=== PATIENT | female | born 1945 | race Asian ===

== ENCOUNTER 2019-03-19 11:41 | Inpatient (IN) | payer OTHER ==
--- NOTE | 2019-03-05 19:40 | NUR ---
RECEIVED PATIENT AAOX4, KYRGYZ IS PRIMARY LANGUAGE. PT ON THE PHONE, CALM AND PLEASANT, SPEAKS YAKUT.IVF INFUSING SITE INTACT. NAD NOTED.
[~2019-03-19] VITALS: Ht 152.4 cm; Wt 73.5 kg
[2019-03-19 11:55] VITALS: BP 114/60
--- NOTE | 2019-03-19 11:56 | NUR ---
PATIENT AMBULATED TO BED 6
[2019-03-19] MEDS ORDERED: METF1TAB5 PO (12:12)
[2019-03-19] MEDS ORDERED: CLOP75TA55 PO (12:12)
[2019-03-19] MEDS ORDERED: SYN.05 PO (12:12)
[2019-03-19] MEDS ORDERED: PREG100C PO (12:12)
[2019-03-19] MEDS ORDERED: EMPA10TA PO (12:12)
[2019-03-19] MEDS ORDERED: MONT10TA35 PO (12:12)
[2019-03-19] MEDS ORDERED: ISOS10TA9 PO (12:12)
[2019-03-19] MEDS ORDERED: NITR0.4T2 SL (12:12)
[2019-03-19] MEDS ORDERED: OLOP2.5S OP (12:12)
[2019-03-19] MEDS ORDERED: INSU100S22 SUBQ (12:12)
[2019-03-19] MEDS ORDERED: NIAC500T30 PO (12:12)
[2019-03-19] MEDS ORDERED: RALO60TA PO (12:12)
[2019-03-19] MEDS ORDERED: FLUT1DSK2 IH (12:12)
[2019-03-19] MEDS ORDERED: FURO-572 PO (12:12)
[2019-03-19] MEDS ORDERED: ASPI-1718 PO (12:12)
[2019-03-19] MEDS ORDERED: TELM80TA1 PO (12:12)
[2019-03-19] MEDS ORDERED: LEVO5TAB12 PO (12:12)
[2019-03-19] MEDS ORDERED: METO50TE2 PO (12:12)
--- NOTE | 2019-03-19 12:13 | NUR ---
C/O RIGHT 3RD TOE WOUND, PT WAS SEEN AT PMD OFFICE AND REFERRED TO ER TO R/O OSTEOMYELITIS WITH ABSCESS. PT STATES STILL ABLE TO AMBULATE/BEAR WEIGHT ON RT FOOT. STATES NUMBNESS D/T DIABETIC NEUROPATHY. DENIES FEVER, PAIN. TOE IS SWOLLEN, WITH OPEN ABSCESS ON DORSAL SURFACE ON RIGHT SIDE OF TOENAIL. NO BLACKENED AREAS. NO ACTIVE DRAINAGE FROM ABSCESS. HX HTN, DM, HYPOTHYOID
[2019-03-19] MEDS ORDERED: NACL 0.9% 1,000 ML IV ONE (13:05)
[2019-03-19] MEDS ORDERED: PIPERACILLIN/TAZOBACTAM 4.5 GM in DEXTROSE 5% 100 ML IV ONE (13:05)
[2019-03-19] MEDS ORDERED: VANCOMYCIN 1,000 MG in DEXTROSE 5% 250 ML IV ONE (13:05)
--- NOTE | 2019-03-19 13:16 | NUR ---
X-Ray at bedside.
[2019-03-19] MEDS ORDERED: VANCOMYCIN 1,000 MG VIAL ONE (13:29)
[2019-03-19] MEDS ORDERED: PIPERACILLIN/TAZOBACTAM 2.25 GM VIAL IV ONE (13:29)
[2019-03-19 13:50] LABS: BASOPHILS % (AUTO) 0.6 % (0.0-2.0); EOSINOPHILS # (AUTO) 0.1 K/uL (0-0.4); EOSINOPHILS % (AUTO) 1.6 % (0.0-4.0); HEMATOCRIT 35.3 % (36-48); HEMOGLOBIN 11.4 g/dL (12.0-16.0); LYMPHOCYTES # (AUTO) 1.7 K/uL (2.5-16.5); LYMPHOCYTES % (AUTO) 22.8 % (20.5-51.1); MEAN CORPUSCULAR HEMOGLOBIN 32 pg (27-31); MEAN CORPUSCULAR HGB CONC 32 g/dL (33-37); MEAN CORPUSCULAR VOLUME 98.6 fL (80-94); MONOCYTES # (AUTO) 0.5 K/uL (0.8-1.0); MONOCYTES % (AUTO) 6.3 % (1.7-9.3); NEUTROPHILS % (AUTO) 68.7 % (42.2-75.2); PLATELET COUNT (AUTO) 213 K/uL (140-450); RED BLOOD CELL COUNT(AUTO) 3.58 MIL/uL (4.20-5.40); RED CELL DISTRIBUTION WIDTH 13.6 % (11.6-13.7); WHITE BLOOD COUNT (AUTO) 7.3 K/uL (4.8-10.8)
[2019-03-19 14:05] LABS: ANION GAP 13.4 (8-16); CARBON DIOXIDE 26.6 mmol/L (21-32); CHLORIDE 104 mmol/L (98-107); CREATININE 1.1 mg/dL (0.6-1.3); GLUCOSE 161 mg/dL (74-106); SODIUM SERUM 139 mmol/L (136-145); UREA NITROGEN, BLOOD 22 mg/dL (7-18)
--- NOTE | 2019-03-19 16:08 | NUR ---
PHOTO OF RIGHT FOOT 3RD DIGIT TAKEN AND PRINTED.
[2019-03-19] MEDS ORDERED: ONDANSETRON 4 MG/2 ML VIAL IM/IVP PRN (16:25)
[2019-03-19] MEDS ORDERED: ACETAMINOPHEN 325 MG TAB PO PRN (16:25)
[2019-03-19] MEDS ORDERED: MORPHINE SULFATE 2 MG/ML SYR IVP PRN (16:25)
[2019-03-19] MEDS ORDERED: DEXTROSE 50% 50 ML SYR IVP PRN (16:25)
[2019-03-19] MEDS ORDERED: DOCUSATE SODIUM 100 MG GELCAP PO PRN (16:25)
[2019-03-19] MEDS ORDERED: LORazepam 2 MG/ML VIAL IM/IVP PRN (16:25)
[2019-03-19] MEDS ORDERED: HYDROcodone/APAP 5/325 MG 1 TAB TAB PO PRN (16:25)
[2019-03-19] MEDS: BLOOD GLUCOSE MONITORING 1 DEV DEV FS SCH ×2 (16:30→20:07)
[2019-03-19] MEDS ORDERED: VANCOMYCIN PER PHARMACY MC PRN (16:30)
--- NOTE | 2019-03-19 16:55 | NUR ---
Ultrasound in progress. Will take patient to Med surg when US complete.
--- NOTE | 2019-03-19 17:40 | NUR ---
PATIENT ARRIVED UNIT ACCOMPANIED BY ER NURSE IN WHEELCHAIR. TRANSFERRED PATIENT ON BED AND VITAL SIGNS TAKEN; TEMP 97.1, BP 155/64, PULSE 55, SPO2 98% ON RA, DENIED PAIN. MRSA COLLECTED. PATIENT IS RESTING ON BED AT THIS TIME. NO SIGNS OF DISTRESS NOTED.
--- NOTE | 2019-03-19 17:40 | NUR ---
Patient will be admitted to care of DR. MARTINEZ. Admited to TELE. Will go to room 110B. Belongings list completed. Report to LONNIE ROOT.
--- NOTE | 2019-03-19 18:25 | NUR ---
DR DENISE IS BY BEDSIDE AND ASSESSING PATIENT. DR DENISE DID WOUND DEBRIDEMENT AND COLLECTED WOUND SPECIMEN.
[2019-03-19 18:32] LABS: ALBUMIN 2.9 g/dL (3.4-5.0); ANION GAP 11.6 (8-16); ASPARTATE AMINOTRANSFERASE 35 U/L (15-37); CARBON DIOXIDE 26.5 mmol/L (21-32); CHLORIDE 105 mmol/L (98-107); CREATININE 1.2 mg/dL (0.6-1.3); GLUCOSE 151 mg/dL (74-106); POTASSIUM 5.1 mmol/L (3.5-5.1); SODIUM SERUM 138 mmol/L (136-145); TOTAL BILIRUBIN 0.3 mg/dL (0.0-1.0); UREA NITROGEN, BLOOD 22 mg/dL (7-18)
--- NOTE | 2019-03-19 18:40 | NUR ---
ASSISTED PATIENT TO USE THE BATHROOM. PATIENT'S GAIT IS UNSTEADY DUE TO HER FOOT
[2019-03-19] MEDS: NACL 0.9% 1,000 ML IV SCH (18:56)
[2019-03-19 19:20] LABS: MAGNESIUM 1.6 mg/dL (1.8-2.4); PHOSPHORUS 3.9 mg/dL (2.5-4.9); THYROID STIMULATING HORMONE 0.82 uIU/mL (0.34-3.74)
--- NOTE | 2019-03-19 19:30 | NUR ---
ENDORSED PATIENT AT BEDSIDE TO MEDICAL CLAIMS EXAMINER NURSE FOR CONTINUITY OF CARE. PATIENT IS IN STABLE CONDITION. SAFETY MEASURES IN PLACE.
--- NOTE | 2019-03-19 19:31 | NUR ---
RECEIVED PTSYDNEY FLEMING RN PT AAOX4 S/P DEBRIDEMENT ON RT FOOT THIRD TOE IV ON LEFT WRIST GAUGE # 22 INFUSING WELL DENIES ANY PAIN CALL LIGHT WITHIN REACH INITIAL ASSESSMENT DONE.
[2019-03-19 20:00] VITALS: BP 178/62
[2019-03-19] MEDS ORDERED: METOPROLOL SUCCINATE 50 MG TABER PO SCH (20:00)
[2019-03-19] MEDS: PIPERACILLIN/TAZOBACTAM 3.375 GM in DEXTROSE 5% 50 ML IV SCH (20:09)
[2019-03-19] MEDS: MONTELUKAST SODIUM 10 MG TAB PO SCH (20:13)
[2019-03-19 20:53] LABS: PROTHROMBIN TIME 8.8 secs (10.8-13.4)
--- NOTE | 2019-03-19 21:00 | NUR ---
BLOOD SUGAR TEST 112 NOT COVERAGE, PT IS TRANSFER TO ROOM 120B
[2019-03-19] MEDS ORDERED: hePARIN / DEXT 5% PREMIX 250 ML IV SCH (21:55)
[2019-03-19] MEDS ORDERED: HEPARIN PER PHARMACY MC PRN (21:55)
[2019-03-19] MEDS: hePARIN / DEXT 5% PREMIX 250 ML IV SCH (23:04)
--- NOTE | 2019-03-19 23:04 | NUR ---
HEPARIN DRIP STARTED AT 850 UNITS/H OR 8.5 ML/H AND PHARMACY CALL PLEASE DO NOT GIVE BOLUS AND REPORT PHARMACY RESULT OF PTT IN 6 HOURS NEXT PTT WILL BE AT 0504 AM
[2019-03-19] MEDS ORDERED: MELATONIN 3 MG TAB PO PRN (23:35)
[2019-03-20] VITALS: BP 124/45
--- NOTE | 2019-03-20 01:00 | NUR ---
PT REMAIN STBLE SLEEPING WELL NOT DISTRESS NOTED NOT SIGNS OF LBEEDING NOTED
[2019-03-20] MEDS: NACL 0.9% 1,000 ML IV SCH ×2 (01:45→16:46)
[2019-03-20 04:00] VITALS: BP 131/48
--- NOTE | 2019-03-20 04:00 | NUR ---
SPONGE BATH GIVEN LINEN CHANGED PT ON HEPARIN DRIP 8.5 ML/H , NOT SIGNS OF BLEEDING NOTED , PT DENIES ANY PAIN, RT FOOT DRESSING DRY AND INTACT ON PILLOW ELEVATION
[2019-03-20] MEDS: PIPERACILLIN/TAZOBACTAM 3.375 GM in DEXTROSE 5% 50 ML IV SCH ×3 (05:04→21:26)
[2019-03-20] MEDS: LEVOTHYROXINE 0.05 MG TAB PO SCH (05:18)
[2019-03-20] MEDS: BLOOD GLUCOSE MONITORING 1 DEV DEV FS SCH ×4 (05:44→21:04)
[2019-03-20 06:08] LABS: BASOPHILS % (AUTO) 0.8 % (0.0-2.0); EOSINOPHILS # (AUTO) 0.2 K/uL (0-0.4); HEMATOCRIT 31.9 % (36-48); HEMOGLOBIN 10.4 g/dL (12.0-16.0); LYMPHOCYTES # (AUTO) 1.8 K/uL (2.5-16.5); MEAN CORPUSCULAR HEMOGLOBIN 32 pg (27-31); MEAN CORPUSCULAR HGB CONC 33 g/dL (33-37); MEAN CORPUSCULAR VOLUME 97.8 fL (80-94); MONOCYTES # (AUTO) 0.6 K/uL (0.8-1.0); MONOCYTES % (AUTO) 11.1 % (1.7-9.3); NEUTROPHILS # (AUTO) 3.1 K/uL (1.8-7.7); NEUTROPHILS % (AUTO) 53.1 % (42.2-75.2); PLATELET COUNT (AUTO) 202 K/uL (140-450); RED BLOOD CELL COUNT(AUTO) 3.26 MIL/uL (4.20-5.40); RED CELL DISTRIBUTION WIDTH 13.2 % (11.6-13.7); WHITE BLOOD COUNT (AUTO) 5.8 K/uL (4.8-10.8)
[2019-03-20 06:14] LABS: ANION GAP 9.8 (8-16); CARBON DIOXIDE 28.5 mmol/L (21-32); CHLORIDE 108 mmol/L (98-107); CREATININE 1.1 mg/dL (0.6-1.3); GLUCOSE 111 mg/dL (74-106); POTASSIUM 5.3 mmol/L (3.5-5.1); SODIUM SERUM 141 mmol/L (136-145); UREA NITROGEN, BLOOD 21 mg/dL (7-18)
[2019-03-20 06:18] LABS: CHOL/HDL RATIO 2.8 (1-4.5); MAGNESIUM 1.7 mg/dL (1.8-2.4); PHOSPHORUS 4.8 mg/dL (2.5-4.9)
--- NOTE | 2019-03-20 06:51 | NUR ---
CALLED LAB AND ASKED OF RESULT OF PTT ON 454 THAT STILL WAS PENDING SO JJM=[id number].STOPPED HEPARIN DRIP AT 0650 HAS TO STOP X1 HR THEN START AGAIN PER PROTOCOL.INFORMED KATHARINA ROOT PT'S NURSE.
--- NOTE | 2019-03-20 07:01 | NUR ---
;PT WILL BE ENDORSED TO DAY SHIFT NURSE TO CONTINUE HEPARIN PROTOCOL HEPARIN IS HOLDING FOR ONE HOUR AND END AT 0750AM AND WILL BE REDUCE 200 UNITS/H THE HEPARIN DRIP WILL BE 650 UNITS/H AND CONTINUE HEPARIN PROTOCOL
--- NOTE | 2019-03-20 07:20 | NUR ---
RECEIVED REPORT FROM FERRYBOAT OPERATOR HELPER RN. PATIENT IS FULL CODE, NKA, ON ROOM AIR. PT IS AAOX4, BERMUDIAN SPEAKING WITH MINIMAL PERUVIAN. PT HAS A LEFT WRIST 22G. TROPONIN LEVELS ARE HIGH, HEPARIN DRIP IS INFUSING. RN STOPPED HEP DRIP AT 0700 FOR HIGH PTT OF 111. DRIP TO BE RESUMED AT 0800 WITH 200 LESS UNITS. WILL FOLLOW UP AND CONTINUE [facility] PLAN OF CARE.
[2019-03-20 08:00] VITALS: BP 128/38
[2019-03-20] MEDS: hePARIN / DEXT 5% PREMIX 250 ML IV SCH ×3 (08:00→21:46)
--- NOTE | 2019-03-20 08:00 | NUR ---
HEPARIN DRIP RESUMED AT 650U. PTT ORDERED FOR 1400. PT WAS CONSULTED BY DR CRABTREE MEAT SEAFOOD ASSOCIATE. Addendum: 03/20/19 at 0931 by Yary Frank RN DR GUALLPA
--- NOTE | 2019-03-20 08:10 | NUR ---
PATIENT HAS BEEN SCREENED AND CATEGORIZED HIGH NUTRITION RISK. PATIENT WILL BE SEEN WITHIN 1-2 DAYS OF ADMISSION. 03/20/19-03/21/[address]
[2019-03-20 08:21] LABS: FOLIC ACID 19.3 ng/mL (>3.0)
[2019-03-20] MEDS: LACTOBACILLUS RHAMNOSUS GG 1 EACH CAP PO SCH (08:26)
[2019-03-20] MEDS: NIACIN 500 MG TAB PO SCH (08:27)
--- NOTE | 2019-03-20 08:30 | NUR ---
ADMINISTERED MORNING MEDICATION TO PATIENT. PATIENT TOLERATED WELL. DID NOT ADMINISTER COZAAR D/T PROTOCOL OF DBP <60. GAVE 10U LANTUS, BLOOD SUGAR PRIOR WAS 147. PATIENT IS SITTING UP IN BED. NO COMPLAINTS AT THIS TIME.
[2019-03-20] MEDS: INSULIN LANTUS 100 UNITS/ML 10 ML VIAL SUBQ SCH (08:31)
[2019-03-20] MEDS: ASPIRIN 81 MG TAB.CHEW PO SCH (08:32)
[2019-03-20] MEDS: FUROSEMIDE 20 MG TAB PO SCH (08:33)
[2019-03-20] MEDS: ISOSORBIDE DINITRATE 10 MG TAB PO SCH (08:34)
[2019-03-20] MEDS: LOSARTAN 50 MG TAB PO SCH (08:34)
[2019-03-20] MEDS ORDERED: NON-FORMULARY ITEM (Clopidogrel Bisulfate (Clopidogrel) 75 MG) PO SCH (09:00)
[2019-03-20] MEDS ORDERED: CLOPIDOGREL 75 MG TAB PO SCH (09:00)
[2019-03-20] MEDS ORDERED: METOPROLOL SUCCINATE 50 MG TABER PO SCH (09:00)
[2019-03-20] MEDS: RALOXIFENE 60 MG TAB PO SCH (09:00)
[2019-03-20] MEDS ORDERED: INSULIN GLARGINE HUM REC ANLOG U SUBQ SCH (09:00)
--- NOTE | 2019-03-20 11:30 | NUR ---
ADMINISTERED INSULIN 2U FOR BLOOD SUGAR OF 177
[2019-03-20] MEDS: INSULIN LISPRO SLIDING SCALE 100 UNITS/ML VIAL SUBQ PRN ×3 (11:44→21:08)
[2019-03-20] MEDS: VANCOMYCIN HCL 750 MG in DEXTROSE 5% 250 ML IV SCH (12:00)
--- NOTE | 2019-03-20 12:26 | NUR ---
ADMINISTERED MAG OX PO PER DR ORDER FOR LOW MAGNESIUM. PATIENTS SON IS AT BEDSIDE. NO COMPLAINTS AT THIS TIME.
[2019-03-20] MEDS ORDERED: FUROSEMIDE 20 MG/2 ML VIAL IVP SCH (12:30)
[2019-03-20] MEDS ORDERED: MAGNESIUM OXIDE 400 MG TAB PO SCH (12:30)
--- NOTE | 2019-03-20 12:45 | NUR ---
03/20/19 RD INITIAL ASSESSMENT COMPLETED PLEASE REFER TO NUTRITION ASSESSMENT UNDER CARE ACTIVITY FOR ESTIMATED NUTRITIONAL NEEDS. 1. CONTINUE CCHO 60GM DIET TOLERATED 2. RECOMMEND DARIEL BID FOR WOUND HEALING 3. RD TO FOLLOW-UP 3-5 DAYS, MODERATE RISK PATITO BUSH, RD
[2019-03-20] MEDS: DRY DRESSING TP SCH (13:00)
[2019-03-20] MEDS: GAUZE TP SCH (13:00)
--- NOTE | 2019-03-20 13:00 | NUR ---
DID NOT ADMIN GAUZE AND DRESSING CHANGE D/T DR DENISE WAS HERE AND HAD CHANGED IT AND THEN PUT IN THOSE ORDERS FOR DAILY DRESSING CHANGE. WILL ENDORSE TO IN STORE MARKETING ASSOCIATE
[2019-03-20 14:20] LABS: ANION GAP 13.1 (8-16); ASPARTATE AMINOTRANSFERASE 27 U/L (15-37); CARBON DIOXIDE 27.1 mmol/L (21-32); CHLORIDE 105 mmol/L (98-107); CREATININE 1.2 mg/dL (0.6-1.3); GLUCOSE 208 mg/dL (74-106); POTASSIUM 4.2 mmol/L (3.5-5.1); SODIUM SERUM 141 mmol/L (136-145); TOTAL BILIRUBIN 0.4 mg/dL (0.0-1.0); UREA NITROGEN, BLOOD 19 mg/dL (7-18)
--- NOTE | 2019-03-20 14:20 | NUR ---
Telecommunications Sales Representative Note: Assessment/Discharge Planning: Per patient, she lives at home with her son Nakita Rojas . She ambulates with a walker sometimes. She has a wheelchair at home. Patient's son assist her with ADLs at home and takes her to pcp's office. She use to have home health services a long time ago. Patient's Lao is limited. I told patient I was going to speak with her son Nakita. She verbalized understanding. She requested I meet with him tomorrow (03/21/19) around 9am.
--- NOTE | 2019-03-20 14:30 | NUR ---
RECEIVED CRITICAL TROPONIN OF 0.101. DID NOT NOTIFY D/T TRENDING DOWN.
--- NOTE | 2019-03-20 15:15 | NUR ---
PATIENT IS OFF UNIT FOR NUCLEAR MED SCAN TO R/O OSTEOMYELITIS. WAS INFORMED NUCLEAR MED WILL RETURN AT EITHER 1800 OR 1900 TO CONTINUE THE SCAN
[2019-03-20 16:00] VITALS: BP 130/48
--- NOTE | 2019-03-20 16:39 | NUR ---
APTT VALUE RECEIVED OF 61.9. PER PROTOCOL, NO CHANGE IN HEPARIN DRIP.
--- NOTE | 2019-03-20 16:46 | NUR ---
ADMINISTERED 6U INSULIN FOR BLOOD SUGAR OF 256
--- NOTE | 2019-03-20 19:00 | NUR ---
RECIEVED PT FROM JACKIE ROOT. PT AWAKE AAOX4. IV LEFT WRIST INFUSING WELL HEPARIN 650 UNIT PER HR.
[2019-03-20 20:00] VITALS: BP 135/45
--- NOTE | 2019-03-20 20:45 | NUR ---
PT. BACK FROM NUCLEAR MEDICINE AND LAB DRAWING BLOOD FOR PTT. NO DISTRESS NOTED.
[2019-03-20] MEDS: MONTELUKAST SODIUM 10 MG TAB PO SCH (21:26)
--- NOTE | 2019-03-20 21:46 | NUR ---
PTT 54.4 AND WILL CONT HEPARIN DRIP AT 650 UNITS PER HOUR NO CHANGES.
[2019-03-21] VITALS: BP 136/48
--- NOTE | 2019-03-21 | NUR ---
PT SLEEPING WELL NOT DISTRESS NOTED NOT SIGN OF BLEEDING NOTED ON HEPARIN DRIP REMAIN 650 UNITS /H PT ON CLOSE MONITORING
--- NOTE | 2019-03-21 03:00 | NUR ---
PT REMAIN STABLE ON HEPARIN DRIP 650 UNITS/H;, VOIDING WELL
[2019-03-21 04:00] VITALS: BP_SYST 133; BP_SYST 136; BP_DIAS 48; BP_DIAS 58
[2019-03-21] MEDS: PIPERACILLIN/TAZOBACTAM 3.375 GM in DEXTROSE 5% 50 ML IV SCH ×3 (05:19→20:40)
[2019-03-21] MEDS: NACL 0.9% 1,000 ML IV SCH ×2 (05:20→18:16)
[2019-03-21] MEDS: BLOOD GLUCOSE MONITORING 1 DEV DEV FS SCH ×4 (05:27→20:47)
--- NOTE | 2019-03-21 05:30 | NUR ---
SPONGE BATH GIVEN LINEN CHANGED NOT DISTRESS NOTED PT USING BSC ON HEPARIN DRIP ON LEFT WRIST
[2019-03-21] MEDS: LEVOTHYROXINE 0.05 MG TAB PO SCH (05:35)
--- NOTE | 2019-03-21 06:25 | NUR ---
BLOOD SUGAR TEST 107 NOT COVERAGE
--- NOTE | 2019-03-21 06:26 | NUR ---
PT WILL BE ENDORSED TO DAY SHIFT NURSE FOR CONTINUE OF CARE
[2019-03-21 06:44] LABS: ANION GAP 13.9 (8-16); CARBON DIOXIDE 27.3 mmol/L (21-32); CHLORIDE 107 mmol/L (98-107); CREATININE 1.1 mg/dL (0.6-1.3); GLUCOSE 117 mg/dL (74-106); POTASSIUM 4.2 mmol/L (3.5-5.1); SODIUM SERUM 144 mmol/L (136-145); UREA NITROGEN, BLOOD 18 mg/dL (7-18)
[2019-03-21 06:47] LABS: MAGNESIUM 1.7 mg/dL (1.8-2.4); PHOSPHORUS 4.2 mg/dL (2.5-4.9)
[2019-03-21 07:26] LABS: BASOPHILS % (AUTO) 0.7 % (0.0-2.0); EOSINOPHILS # (AUTO) 0.1 K/uL (0-0.4); EOSINOPHILS % (AUTO) 2.5 % (0.0-4.0); HEMATOCRIT 32.8 % (36-48); HEMOGLOBIN 10.8 g/dL (12.0-16.0); LYMPHOCYTES # (AUTO) 1.7 K/uL (2.5-16.5); LYMPHOCYTES % (AUTO) 29.8 % (20.5-51.1); MEAN CORPUSCULAR HEMOGLOBIN 32 pg (27-31); MEAN CORPUSCULAR HGB CONC 33 g/dL (33-37); MEAN CORPUSCULAR VOLUME 97.4 fL (80-94); MONOCYTES # (AUTO) 0.7 K/uL (0.8-1.0); MONOCYTES % (AUTO) 12.3 % (1.7-9.3); NEUTROPHILS # (AUTO) 3.1 K/uL (1.8-7.7); NEUTROPHILS % (AUTO) 54.7 % (42.2-75.2); PLATELET COUNT (AUTO) 221 K/uL (140-450); RED BLOOD CELL COUNT(AUTO) 3.37 MIL/uL (4.20-5.40); RED CELL DISTRIBUTION WIDTH 13.8 % (11.6-13.7); WHITE BLOOD COUNT (AUTO) 5.6 K/uL (4.8-10.8)
--- NOTE | 2019-03-21 07:30 | NUR ---
RECEIVED REPORT FROM RUBBER COVERING MACHINE OPERATOR RN. PATIENT IS RESTING IN BED, ON HEPARIN DRIP. PATIENT IS AAOX4, ON ROOM AIR. FULL CODE, NKA. WILL REVIEW AND CONTINUE WITH PLAN OF CARE.
[2019-03-21 08:00] VITALS: BP 141/50
[2019-03-21] MEDS ORDERED: MAGNESIUM OXIDE 400 MG TAB PO SCH ×2 (09:00)
--- NOTE | 2019-03-21 09:10 | NUR ---
Ferryboat Helper Note: I met with patient's son Nakita Rojas . I was able to confirmed with Nakita the following information patient had previously provided me with. Patient lives at home with her son Nakita. She ambulates with a walker sometimes. She has a wheelchair at home. Patient's son assist her with ADLs at home and takes her to pcp's office. She use to have home health services a long time ago. He told me patient has never been at a snf before. Patient and Nakita prefer patient to return home upon discharge. However, they are both in agreement with snf placement. I provided Nakita with education/information about snfs, including difference between halfway placement and short term placement. I explained to him that the health insurance plan will be notified of MD's order for snf. He told me patient might get anxious at snf since she has never been at one before. I asked him if he would like for Ferryboat Helper or Emergency Medical Technician/Driver to speak with national account representative from accepting snf and inquired if he/she can meet with patient and Nakita to provide information about their facility and address questions and/or concerns. He told me he thinks this would help minimize patient's anxiety, Emergency Medical Technician/Driver Sammi made aware.
--- NOTE | 2019-03-21 09:30 | NUR ---
SENT OVER URINE SPECIMEN TO LAB FOR UA PER DR GERBER
[2019-03-21] MEDS: ATORVASTATIN 80 MG TAB PO SCH (09:31)
[2019-03-21] MEDS: LACTOBACILLUS RHAMNOSUS GG 1 EACH CAP PO SCH (09:32)
[2019-03-21] MEDS: FUROSEMIDE 20 MG TAB PO SCH (09:32)
[2019-03-21] MEDS: LOSARTAN 50 MG TAB PO SCH (09:33)
[2019-03-21] MEDS: ISOSORBIDE DINITRATE 10 MG TAB PO SCH (09:33)
[2019-03-21] MEDS: NIACIN 500 MG TAB PO SCH (09:34)
[2019-03-21] MEDS: ASPIRIN 81 MG TAB.CHEW PO SCH (09:34)
[2019-03-21] MEDS: RALOXIFENE 60 MG TAB PO SCH (09:34)
[2019-03-21] MEDS: CLOPIDOGREL 75 MG TAB PO SCH (09:35)
[2019-03-21] MEDS: INSULIN LANTUS 100 UNITS/ML 10 ML VIAL SUBQ SCH (09:38)
--- NOTE | 2019-03-21 10:00 | NUR ---
DISCONTINUED HEPARIN DRIP PER APTT OF [address] GERBER'S ORDERS
--- NOTE | 2019-03-21 10:13 | NUR ---
WOUND CARE CONSULT NOT DONE, PT. SEEN AND DEBRIDEMENT DONE TO RIGHT 3RD TOE BY DR. OQUENDO ON 03/20/19, WILL CONTINUE TO FOLLOW THE ORDER. PT. AND SON VERBALIZES UNDERSTANDING. PRIMARY RN NOTIFIED.
[2019-03-21 10:17] LABS: APPEARANCE,URINE CLEAR (CLEAR); BILIRUBIN,URINE NEGATIVE (NEGATIVE); BLOOD, URINE NEGATIVE (NEGATIVE); COLOR,URINE YELLOW (YELLOW); LEUKOCYTE ESTERASE ,URINE NEGATIVE (NEGATIVE); NITRITE, URINE NEGATIVE (NEGATIVE); UGLUCOSE 3+ (NEGATIVE)
[2019-03-21 10:22] LABS: BARBITURATE, URINE NEG. ng/ml (NEG <=200); BENZODIAZEPINE, URINE NEG. ng/mL (NEG <=200); CANNABINOID, URINE NEG. ng/mL (NEG <=50); COCAINE, URINE NEG. ng/mL (NEG <=300); OPIATE, URINE NEG. ng/mL (NEG <=2000); PHENCYCLIDINE SCREEN,URINE NEG. ng/mL (NEG <=25)
[2019-03-21 10:27] LABS: RBC,URINE 0 /HPF (0-5); WBC,URINE 0 /HPF (0-5)
--- NOTE | 2019-03-21 10:47 | NUR ---
DC PLANNING: CM CONTACTED [facility] [employer] @ [employer]T. [facility]. SPOKE WITH JORGE REGARDING DC PLANNING TO SNF FOR IV ABX FOR OSTEOMYLITIS. JORGE ASKED CM TO FAX ORDER AND CLINICAL PACKET. THEY ARE THE ONE WHO WILL BE ARRANGING SNF FOR THE PATIENT. CM FAXED CLINICAL PACKET AND ORDER TO F . CM TO FOLLOW UP NEEDED. Addendum: 03/21/19 at 1426 by Sammi Dickson CM CM ATTEMPTED TO FOLLOW UP WITH [employer] [facility] CM (EKATERINA HARRINGTON) @ REGARDING SNF PLACEMENT. HOWEVER, WAS NOT AVAILABLE. CM LEFT VOICE MESSAGE AND CALL BACK NUMBER. CM TO FOLLOW UP.
--- NOTE | 2019-03-21 11:35 | NUR ---
ADMINISTERED 4U INSULIN FOR BLOOD SUGAR OF 227
[2019-03-21] MEDS: INSULIN LISPRO SLIDING SCALE 100 UNITS/ML VIAL SUBQ PRN ×3 (11:37→20:49)
[2019-03-21 12:00] VITALS: BP 105/58
--- NOTE | 2019-03-21 12:41 | NUR ---
PATIENT USED BEDSIDE COMMODE FOR BM X1. SON IS AT BEDSIDE. SON DISCUSSED DISCHARGE PLANNING WITH BENEFIT DIRECTOR. NO FURTHER QUESTIONS FROM SON OR PATIENT.
[2019-03-21] MEDS: VANCOMYCIN HCL 750 MG in DEXTROSE 5% 250 ML IV SCH (13:00)
--- NOTE | 2019-03-21 13:30 | NUR ---
CHANGED PATIENTS DRESSING TO RIGHT FOOT TO 3RD DIGIT. PATIENT TOLERATED WELL, NO C/O OF PAIN DURING.
[2019-03-21] MEDS: GAUZE TP SCH (13:54)
[2019-03-21] MEDS: DRY DRESSING TP SCH (13:55)
[2019-03-21 16:00] VITALS: BP 109/40
--- NOTE | 2019-03-21 19:30 | NUR ---
RECEIVED PT IN STABLE CONDITION FROM AN NURSE. AWAKE,ALERT AND ORIENTEDX4. MED SURG PT. WITH NO C/O ANY DISCOMFORT NOR PAIN NOTED. RIGHT FOOT WITH DRESSING .DRY AND INTACT. NO BLEEDING NOTED. HAS IVF INFUSING WELL ON ELLLT WRIST G #22. CLEAR AND PATENT. FREQ ROUNDS NEEDED. BSC WITHIN REACH BUT CALL LIGHT ALSO PLACED WITHIN EASY REACH FOR HER TO CALL FIRST FOR ASSISTANCE. BED ON LOW POSITION. WILL CONTINUE TO MONITOR.
[2019-03-21] MEDS: MONTELUKAST SODIUM 10 MG TAB PO SCH (20:40)
--- NOTE | 2019-03-21 20:50 | NUR ---
BLOOD SUGAR WAS CHECKED RESULT 334. INSULIN COVERAGE HUMALOG 8 UNITS SUBQ GIVEN. PROVIDED WITH SNACK. WILL CONTINUE TO MONITOR.
--- NOTE | 2019-03-21 22:00 | NUR ---
MADE ROUNDS. PT IS ASLEEP. NO S/S OF ANY DISCOMFORT NOTED.
--- NOTE | 2019-03-22 00:20 | NUR ---
MADE ROUNDS. PT SLEEPING WELL. .NO S/S OF ANY PAIN NOTED. WILL CONTINUE TO MONITOR.
--- NOTE | 2019-03-22 00:30 | NUR ---
PT VITAL SIGNS TAKEN. STABLE. WILL CONTINUE TO MONITOR.
[2019-03-22 00:43] VITALS: BP_SYST 127; BP_SYST 133; BP_DIAS 61; BP_DIAS 65
--- NOTE | 2019-03-22 02:00 | NUR ---
MADE ROUNDS. PT ASLEEP. NO S/S OF ANY PAIN NOTED. WILL CONTINUE TO MONITOR.
--- NOTE | 2019-03-22 04:00 | NUR ---
MADE ROUNDS. PT ASLEEP. NO S/S OF ANY DISCOMFORT NOTED.
[2019-03-22] MEDS: PIPERACILLIN/TAZOBACTAM 3.375 GM in DEXTROSE 5% 50 ML IV SCH ×3 (04:56→21:40)
[2019-03-22] MEDS: BLOOD GLUCOSE MONITORING 1 DEV DEV FS SCH ×4 (06:06→21:38)
--- NOTE | 2019-03-22 06:10 | NUR ---
BLOOD SUGAR WAS CHECKED THIS A, RESULT 140.
[2019-03-22] MEDS: LEVOTHYROXINE 0.05 MG TAB PO SCH (06:16)
--- NOTE | 2019-03-22 07:15 | NUR ---
ENDORSED PT IN STABLE CONDITION TO AM NURSE FOR CONTINUITY OF CARE.
--- NOTE | 2019-03-22 07:16 | NUR ---
RECEIVED REPORT FROM PROFESSOR OF PRACTICE NURSE JANINE. PT IN STABLE CONDITION. RESPIRATIONS EVEN AND UNLABORED, ROOM AIR. IV INTACT AND PATENT. SAFETY MEASURES IN PLACE. BED IN LOW POSITION. BED ALARM ON. CALL LIGHT AT BEDSIDE. WILL CONTINUE TO MONITOR.
[2019-03-22 07:38] LABS: BASOPHILS % (AUTO) 0.6 % (0.0-2.0); EOSINOPHILS # (AUTO) 0.1 K/uL (0-0.4); EOSINOPHILS % (AUTO) 2.5 % (0.0-4.0); HEMATOCRIT 35.2 % (36-48); HEMOGLOBIN 11.3 g/dL (12.0-16.0); LYMPHOCYTES # (AUTO) 1.9 K/uL (2.5-16.5); LYMPHOCYTES % (AUTO) 33.1 % (20.5-51.1); MEAN CORPUSCULAR HEMOGLOBIN 32 pg (27-31); MEAN CORPUSCULAR HGB CONC 32 g/dL (33-37); MEAN CORPUSCULAR VOLUME 98.5 fL (80-94); MONOCYTES # (AUTO) 0.6 K/uL (0.8-1.0); NEUTROPHILS # (AUTO) 3.2 K/uL (1.8-7.7); NEUTROPHILS % (AUTO) 53.8 % (42.2-75.2); PLATELET COUNT (AUTO) 216 K/uL (140-450); RED BLOOD CELL COUNT(AUTO) 3.57 MIL/uL (4.20-5.40); RED CELL DISTRIBUTION WIDTH 13.8 % (11.6-13.7); WHITE BLOOD COUNT (AUTO) 5.8 K/uL (4.8-10.8)
[2019-03-22 08:00] VITALS: BP 136/53
[2019-03-22 08:26] LABS: MAGNESIUM 1.8 mg/dL (1.8-2.4); PHOSPHORUS 3.2 mg/dL (2.5-4.9)
[2019-03-22] MEDS: LOSARTAN 50 MG TAB PO SCH (09:00)
--- NOTE | 2019-03-22 09:15 | NUR ---
GAVE ORDERED DUE MEDICATIONS AT THIS TIME. PT TOLERATED WELL.
[2019-03-22] MEDS: NIACIN 500 MG TAB PO SCH (09:17)
[2019-03-22] MEDS: FUROSEMIDE 20 MG TAB PO SCH (09:17)
[2019-03-22] MEDS: LACTOBACILLUS RHAMNOSUS GG 1 EACH CAP PO SCH (09:17)
[2019-03-22] MEDS: ATORVASTATIN 80 MG TAB PO SCH (09:17)
[2019-03-22] MEDS: ISOSORBIDE DINITRATE 10 MG TAB PO SCH (09:17)
[2019-03-22] MEDS: RALOXIFENE 60 MG TAB PO SCH (09:18)
[2019-03-22] MEDS: ASPIRIN 81 MG TAB.CHEW PO SCH (09:18)
[2019-03-22] MEDS: CLOPIDOGREL 75 MG TAB PO SCH (09:18)
[2019-03-22] MEDS: NACL 0.9% 1,000 ML IV SCH ×2 (09:30→19:21)
[2019-03-22] MEDS: INSULIN LANTUS 100 UNITS/ML 10 ML VIAL SUBQ SCH (09:37)
[2019-03-22 10:27] LABS: ANION GAP 13.9 (8-16); CARBON DIOXIDE 26.3 mmol/L (21-32); CHLORIDE 107 mmol/L (98-107); CREATININE 1.1 mg/dL (0.6-1.3); GLUCOSE 143 mg/dL (74-106); POTASSIUM 4.2 mmol/L (3.5-5.1); SODIUM SERUM 143 mmol/L (136-145); UREA NITROGEN, BLOOD 14 mg/dL (7-18)
--- NOTE | 2019-03-22 11:25 | NUR ---
ASSISTED PT TO BATHROOM AT THIS TIME. PT HOLDS FURNITURE FOR ASSISTANCE. PT TOLERATED WELL.
--- NOTE | 2019-03-22 13:43 | NUR ---
CALLED PHARMACY SPOKE TO PHARMACIST INFORMING NURSE TO HOLD VANCOMYCIN DUE TO VANCOMYCIN TROUGH PENDING.
--- NOTE | 2019-03-22 15:46 | NUR ---
SPONGE BATH AND LINENS CHANGED AT THIS TIME. PT TOLERATING WELL.
[2019-03-22 16:00] VITALS: BP 121/57
[2019-03-22] MEDS ORDERED: VANCOMYCIN 1,000 MG in DEXTROSE 5% 250 ML IV SCH (16:00)
[2019-03-22] MEDS: GAUZE TP SCH (16:11)
[2019-03-22] MEDS: DRY DRESSING TP SCH (16:11)
[2019-03-22] MEDS: INSULIN LISPRO SLIDING SCALE 100 UNITS/ML VIAL SUBQ PRN ×2 (16:21→21:36)
--- NOTE | 2019-03-22 19:15 | NUR ---
GAVE REPORT TO EINSTEIN BROS BAGELS ASSISTANT MANAGER NURSE FOR CONTINUITY OF CARE. PT IN STABLE CONDITION.
--- NOTE | 2019-03-22 19:16 | NUR ---
RECEIVED BEDSIDE REPORT FROM DAY SHIFT NURSE SHOAIB RN, PT STABLE, NO DISTRESS NOTED, IV TO L WRIST 22G SL AND ANOTHER IV TO L WRIST 22G, PATENT INTACT, INFUSING WELL, PT ON ROOM AIR, NO SOB NOTED, INITIAL ASSESSMENT SHERIFF, ALL SAFETY PRECAUTION MET, CALL LIGHT WITHIN REACH, WILL CONTINUE TO MONITOR.
[2019-03-22] MEDS: MONTELUKAST SODIUM 10 MG TAB PO SCH (21:46)
--- NOTE | 2019-03-22 21:46 | NUR ---
DUE4 MEDICATION ADMINISTERED, PT TOLERATED WELL, NO DISTRESS NOTED, CALL LIGHT WITHIN REACH, WILL CONTINUE TO MONITOR.
--- NOTE | 2019-03-22 23:50 | NUR ---
CHECKED ON PT, TP SLEEPING, V/S TAKEN, WNL, CALL LIGHT WITHIN REACH, WILL CONTINUE TO MONITOR.
[2019-03-23] VITALS: BP 109/46
--- NOTE | 2019-03-23 01:55 | NUR ---
PT SLEEPING, NO DISTRESS NOTED, CALL LIGHT WITHIN REACH,. WILL CONTINUE TO MONITOR.
--- NOTE | 2019-03-23 03:51 | NUR ---
PT SLEEPING, NO DISTRESS NOTED, CALL LIGHT WITHIN REACH, WILL CONTINUE TO MONITOR.
[2019-03-23] MEDS: NACL 0.9% 1,000 ML IV SCH ×2 (04:30→17:48)
[2019-03-23] MEDS: PIPERACILLIN/TAZOBACTAM 3.375 GM in DEXTROSE 5% 50 ML IV SCH ×3 (05:02→22:56)
--- NOTE | 2019-03-23 05:02 | NUR ---
DUE MEDICATION ADMINISTERED, PT TOLERATED WELL, NO DISTRESS NOTED, CALL LIGHT WITHIN REACH, WILL CONTINUE TO MONITOR.
[2019-03-23] MEDS: LEVOTHYROXINE 0.05 MG TAB PO SCH (06:09)
[2019-03-23] MEDS: BLOOD GLUCOSE MONITORING 1 DEV DEV FS SCH ×4 (06:12→21:00)
--- NOTE | 2019-03-23 07:22 | NUR ---
ENDORSED PT TO DAY SHIFT NURSE SHOAIB ROOT, PT STABLE, NO DISTRESS NOTED, CALL LIGHT WITHIN REACH.
--- NOTE | 2019-03-23 07:23 | NUR ---
RECEIVED REPORT FROM GAMMA RAY OPERATOR NURSE TERRI FOR CONTINUITY OF CARE. PT IN STABLE CONDITION. RESPIRATIONS EVEN AND UNLABORED, ROOM AIR. IV INTACT AND PATENT. SAFETY MEASURES IN PLACE. BED IN LOW POSITION. CALL LIGHT AT BEDSIDE. WILL CONTINUE TO MONITOR.
[2019-03-23 07:42] LABS: BASOPHILS % (AUTO) 0.7 % (0.0-2.0); EOSINOPHILS # (AUTO) 0.1 K/uL (0-0.4); EOSINOPHILS % (AUTO) 3.1 % (0.0-4.0); HEMATOCRIT 31.4 % (36-48); HEMOGLOBIN 10.2 g/dL (12.0-16.0); LYMPHOCYTES % (AUTO) 22.8 % (20.5-51.1); MEAN CORPUSCULAR HEMOGLOBIN 32 pg (27-31); MEAN CORPUSCULAR HGB CONC 33 g/dL (33-37); MEAN CORPUSCULAR VOLUME 98.1 fL (80-94); MONOCYTES # (AUTO) 0.5 K/uL (0.8-1.0); MONOCYTES % (AUTO) 11.9 % (1.7-9.3); NEUTROPHILS # (AUTO) 2.8 K/uL (1.8-7.7); NEUTROPHILS % (AUTO) 61.5 % (42.2-75.2); PLATELET COUNT (AUTO) 182 K/uL (140-450); RED CELL DISTRIBUTION WIDTH 13.6 % (11.6-13.7); WHITE BLOOD COUNT (AUTO) 4.5 K/uL (4.8-10.8)
[2019-03-23 07:46] LABS: ANION GAP 8.5 (8-16); CARBON DIOXIDE 29.2 mmol/L (21-32); CHLORIDE 108 mmol/L (98-107); CREATININE 0.9 mg/dL (0.6-1.3); GLUCOSE 136 mg/dL (74-106); POTASSIUM 3.7 mmol/L (3.5-5.1); SODIUM SERUM 142 mmol/L (136-145); UREA NITROGEN, BLOOD 12 mg/dL (7-18)
[2019-03-23 07:54] LABS: MAGNESIUM 1.7 mg/dL (1.8-2.4); PHOSPHORUS 3.3 mg/dL (2.5-4.9)
[2019-03-23 08:00] VITALS: BP 156/58
[2019-03-23] MEDS: POLYVINYL ALCOHOL 1.4% OP 15 ML SOL OP SCH (09:43)
[2019-03-23] MEDS: ATORVASTATIN 80 MG TAB PO SCH (09:44)
[2019-03-23] MEDS: CLOPIDOGREL 75 MG TAB PO SCH (09:44)
[2019-03-23] MEDS: RALOXIFENE 60 MG TAB PO SCH (09:44)
[2019-03-23] MEDS: LACTOBACILLUS RHAMNOSUS GG 1 EACH CAP PO SCH (09:44)
[2019-03-23] MEDS: FUROSEMIDE 20 MG TAB PO SCH (09:45)
[2019-03-23] MEDS: LOSARTAN 50 MG TAB PO SCH (09:45)
[2019-03-23] MEDS: ISOSORBIDE DINITRATE 10 MG TAB PO SCH (09:45)
[2019-03-23] MEDS: ASPIRIN 81 MG TAB.CHEW PO SCH (09:45)
[2019-03-23] MEDS: NIACIN 500 MG TAB PO SCH (09:46)
[2019-03-23] MEDS: INSULIN LANTUS 100 UNITS/ML 10 ML VIAL SUBQ SCH (09:58)
--- NOTE | 2019-03-23 10:00 | NUR ---
GAVE ORDERED DUE MEDICATIONS AT THIS TIME. PT TOLERATED WELL. WILL CONTINUE TO MONITOR.
[2019-03-23] MEDS ORDERED: MAGNESIUM OXIDE 400 MG TAB PO SCH (12:00)
[2019-03-23] MEDS: INSULIN LISPRO SLIDING SCALE 100 UNITS/ML VIAL SUBQ PRN ×3 (12:05→23:22)
[2019-03-23] MEDS: GAUZE TP SCH (12:05)
[2019-03-23] MEDS: DRY DRESSING TP SCH (12:06)
--- NOTE | 2019-03-23 12:19 | NUR ---
PT VISITING WITH FAMILY AT BEDSIDE. GAVE 4 UNITS HUMALOG FOR BLOOD SUGAR 228. PT TOLERATED WELL. WILL CONTINUE TO MONITOR. BED IN LOW POSITION. CALL LIGHT AT BEDSIDE.
--- NOTE | 2019-03-23 14:25 | NUR ---
ASSISTED PT TO RESTROOM AT THIS TIME. PT HOLDS FURNITURE TO STEADY HER WALK. PT IN STABLE CONDITION.
[2019-03-23 16:00] VITALS: BP 135/59
--- NOTE | 2019-03-23 16:33 | NUR ---
PT SITTING UP IN BED IN STABLE CONDITION. BED IN LOW POSITION. CALL LIGHT AT BEDSIDE. WILL CONTINUE TO MONITOR.
--- NOTE | 2019-03-23 19:35 | NUR ---
WILL ENDORSE TO GREENSKEEPER NURSE BRYAN FOR CONTINUITY OF CARE. PT IN STABLE CONDITION.
[2019-03-23 20:25] VITALS: BP 151/57
[2019-03-23] MEDS: MONTELUKAST SODIUM 10 MG TAB PO SCH (22:53)
--- NOTE | 2019-03-23 23:50 | NUR ---
MED PASS DONE. PT ON THE PHONE WITH A FRIEND, TALKATIVE IN THAI, NAD NOTED.
--- NOTE | 2019-03-24 03:00 | NUR ---
ON ROUNDS PT ASLEEP, VOICED NO C/O PAIN OR DISCOMFORT. NO S/S OF DISTRESS NOTED, WILL CONT. TO MONITOR FOR SAFETY / CHANGES.
[2019-03-24 04:20] VITALS: BP 158/54
[2019-03-24] MEDS: BLOOD GLUCOSE MONITORING 1 DEV DEV FS SCH ×4 (06:37→20:04)
[2019-03-24] MEDS: NACL 0.9% 1,000 ML IV SCH ×2 (06:41→20:11)
[2019-03-24] MEDS: LEVOTHYROXINE 0.05 MG TAB PO SCH (06:42)
[2019-03-24] MEDS: PIPERACILLIN/TAZOBACTAM 3.375 GM in DEXTROSE 5% 50 ML IV SCH ×2 (06:43→20:07)
[2019-03-24 06:45] LABS: ANION GAP 9.4 (8-16); CHLORIDE 107 mmol/L (98-107); CREATININE 0.9 mg/dL (0.6-1.3); GLUCOSE 152 mg/dL (74-106); POTASSIUM 3.4 mmol/L (3.5-5.1); SODIUM SERUM 143 mmol/L (136-145); UREA NITROGEN, BLOOD 12 mg/dL (7-18)
[2019-03-24 06:54] LABS: MAGNESIUM 1.7 mg/dL (1.8-2.4); PHOSPHORUS 2.8 mg/dL (2.5-4.9)
[2019-03-24 07:00] LABS: HEMATOCRIT 31.9 % (36-48); HEMOGLOBIN 10.6 g/dL (12.0-16.0); MEAN CORPUSCULAR HEMOGLOBIN 33 pg (27-31); MEAN CORPUSCULAR HGB CONC 33 g/dL (33-37); MEAN CORPUSCULAR VOLUME 97.9 fL (80-94); PLATELET COUNT (AUTO) 249 K/uL (140-450); RED BLOOD CELL COUNT(AUTO) 3.26 MIL/uL (4.20-5.40); RED CELL DISTRIBUTION WIDTH 13.7 % (11.6-13.7); WHITE BLOOD COUNT (AUTO) 5.1 K/uL (4.8-10.8)
--- NOTE | 2019-03-24 07:23 | NUR ---
REPORT TO AM RN. PT ASLEEP, LOOKED UP AT US, IVF INFUSING. NAD NOTED.
--- NOTE | 2019-03-24 07:25 | NUR ---
RECEIVED REPORT FROM C APPLICATION DEVELOPER NURSE. PATIENT LYING DOWN IN BED SLEEPING, AROUSABLE BY VOICE. NO DISTRESS NOTED. DENIES ANY PAIN. AAXO4, CALM, COOPERATIVE, SKIN COLOR APPROPRIATE TO ETHNICITY, WARM TO TOUCH. HAS RIGHT FOOT ULCER, DRESSING IS DRY AND INTACT. ABDOMEN SOFT, NON-DISTENDED. IV SITE INTACT, PATENT, AND INFUSING IVF PER MD ORDERS. REVIEWED PLAN OF CARE WITH PATIENT. PATIENT VERBALIZED UNDERSTANDING. SAFETY MEASURES IN PLACE, CALL LIGHT WITHIN REACH. WILL CONTINUE TO MONITOR.
[2019-03-24 08:00] VITALS: BP 139/72
[2019-03-24 08:40] LABS: EOSINOPHILS % (MANUAL) 4 % (0-4); LYMPHOCYTES % (MANUAL) 20 % (20-46); MONOCYTES % (MANUAL) 12 % (5-12)
[2019-03-24] MEDS: INSULIN LANTUS 100 UNITS/ML 10 ML VIAL SUBQ SCH (09:11)
[2019-03-24] MEDS: LOSARTAN 50 MG TAB PO SCH (09:13)
[2019-03-24] MEDS: ATORVASTATIN 80 MG TAB PO SCH (09:13)
[2019-03-24] MEDS: ISOSORBIDE DINITRATE 10 MG TAB PO SCH (09:13)
[2019-03-24] MEDS: LACTOBACILLUS RHAMNOSUS GG 1 EACH CAP PO SCH (09:13)
[2019-03-24] MEDS: ASPIRIN 81 MG TAB.CHEW PO SCH (09:13)
[2019-03-24] MEDS: NIACIN 500 MG TAB PO SCH (09:13)
[2019-03-24] MEDS: CLOPIDOGREL 75 MG TAB PO SCH (09:14)
[2019-03-24] MEDS: FUROSEMIDE 20 MG TAB PO SCH (09:14)
[2019-03-24] MEDS: POLYVINYL ALCOHOL 1.4% OP 15 ML SOL OP SCH (09:16)
--- NOTE | 2019-03-24 09:18 | NUR ---
PATIENT LYING DOWN IN BED WATCHING VIDEOS ON PHONE. NO DISTRESS NOTED. DENIES ANY PAIN. SCHEDULED MEDICATIONS DUE GIVEN. WILL CONTINUE TO MONITOR.
[2019-03-24] MEDS ORDERED: POTASSIUM CHLORIDE 10 MEQ TABER PO SCH ×2 (09:30→14:00)
[2019-03-24] MEDS: RALOXIFENE 60 MG TAB PO SCH (09:50)
--- NOTE | 2019-03-24 09:53 | NUR ---
PATIENT LYING DOWN IN BED SLEEPING, AROUSABLE BY VOICE. SCHEDULED MEDICATIONS DUE GIVEN. CONDITION UNCHANGED. WILL CONTINUE TO MONITOR.
[2019-03-24] MEDS ORDERED: MAGNESIUM OXIDE 400 MG TAB PO SCH ×2 (10:00→14:00)
--- NOTE | 2019-03-24 11:40 | NUR ---
PATIENT LYING DOWN IN BED WATCHING MOVIE ON HER PHONE. NO DISTRESS NOTED. CONDITION UNCHANGED. WILL CONTINUE TO MONITOR.
--- NOTE | 2019-03-24 12:00 | NUR ---
PHYSICAL THERAPIST AT BEDSIDE WORKING WITH PATIENT. WILL CONTINUE TO MONITOR.
--- NOTE | 2019-03-24 12:33 | NUR ---
DR. CATALAN AT BEDSIDE REVIEWING PLAN OF CARE WITH PATIENT. WILL CONTINUE TO MONITOR.
[2019-03-24] MEDS: INSULIN LISPRO SLIDING SCALE 100 UNITS/ML VIAL SUBQ PRN ×3 (12:48→20:20)
[2019-03-24] MEDS: DRY DRESSING TP SCH (12:49)
[2019-03-24] MEDS: GAUZE TP SCH (12:49)
--- NOTE | 2019-03-24 12:49 | NUR ---
PATIENT SITTING IN BED WITH LUNCH TRAY IN FRONT. CONDITION UNCHANGED. DENIES ANY PAIN. SCHEDULED MEDICATIONS DUE GIVEN. WILL CONTINUE TO MONITOR.
--- NOTE | 2019-03-24 14:55 | NUR ---
03/24/19 RD FOLLOW UP COMPLETED PLEASE REFER TO NUTRITION ASSESSMENT UNDER CARE ACTIVITY FOR ESTIMATED NUTRITIONAL NEEDS. 1. CONTINUE 60G CCHO DIET TOLERATED 2. RECOMMEND DARIEL BID FOR WOUND HEALING 3. RD TO FOLLOW-UP 3-5 DAYS, MODERATE RISK PATITO BUSH, RD
--- NOTE | 2019-03-24 15:50 | NUR ---
NM SCAN COMPLETE. PATIENT BACK IN BED, NO DISTRESS NOTED. DENIES ANY PAIN. WILL CONTINUE TO MONITOR.
[2019-03-24 16:00] VITALS: BP 135/80
[2019-03-24] MEDS ORDERED: LOPERAMIDE 2 MG CAP PO SCH (17:00)
[2019-03-24] MEDS: FERROUS SULFATE 325 MG TABEC PO SCH (17:00)
--- NOTE | 2019-03-24 17:01 | NUR ---
PATIENT COMPLAINS OF DIARRHEA X2, LOPERMIDE GIVEN PER MD ORDERS. OTHER SCHEDULED MEDICATIONS DUE GIVEN. WILL CONTINUE TO MONITOR.
--- NOTE | 2019-03-24 19:25 | NUR ---
GAVE REPORT TO UX ARCHITECT NURSE FOR CONTINUITY OF CARE. PATIENT IN STABLE CONDITION.
--- NOTE | 2019-03-24 19:25 | NUR ---
RECEIVED REPORT FORM HARDEEP ROOT DAYSHIFT NURSE AT BEDSIDE FOR CONTINUITY OF CARE, PT IN STABLE CONDITION.
--- NOTE | 2019-03-24 20:00 | NUR ---
PT UP TO TOILET AND BACK WITH A STEADY GAIT. RIGHT FOOT DRESSING INTACT. V/S FOLLOWS T 98.5 P 85 R 18 B/P 144/57 02 98% ON ROOM AIR. IV SITE 22G LEFT WRIST INTACT WITH NO S/S OF PAIN OR DISTRESS NOTED. N/S RUNNING AT 80MLS/HR. ALL FALLS PRECAUTIONS IN PLACE AND CALL MASON IN REACH.
[2019-03-24] MEDS: MONTELUKAST SODIUM 10 MG TAB PO SCH (20:05)
--- NOTE | 2019-03-24 21:00 | NUR ---
OLENA IS 159, 2 UNITS OF HUMALOG COVERAGE GIVEN. Addendum: 03/25/19 at 0239 by Ana Boland RN SERENAK WAS 249 AND NOT 159 BUT AND SHE WAS GIVEN 4 UNITS HUMALOG PER S/S
--- NOTE | 2019-03-24 21:30 | NUR ---
PT GIVEN ORDERED MEDS OF SINGULAR AND ZOSYN IVABT. ZOSYN RUNNING AT 100MLS/HR, HOWEVER PT STARTED TO C/O OF PAIN IN IV SITE. IV SITE WAS ABLE TO BE FLUSHED, BUT PT C/O OF PAIN. IV WAS STOPPED WILL ATTEMPT ANOTHER IV SITE. PT VERBALIZED UNDERSTANDING.
--- NOTE | 2019-03-24 22:00 | NUR ---
2 IV SITES ATTEMPTED, HOWEVER VEIN WAS BLOWN X2. PT PREFERS ANOTHER RN TRY TO INSERT IV. ER STAFF NOTIFIED WITH REQUEST TO REINSERT ANOTHER IV, CHARGE NURSE AWARE WELL.
[2019-03-25] VITALS: BP 167/66
--- NOTE | 2019-03-25 | NUR ---
PT IN BED SLEEPING V/S FOLLOWS T 98.1 P 66 R18 B/P 167/66. NO S/S OF PAIN OR DISTRESS NOTED. WILL RETAKE B/P AGAIN AND SPEAK WITH MD REGARDING ELEVATED B/P.
--- NOTE | 2019-03-25 01:00 | NUR ---
B/P RETAKEN PT HAS NO S/S OF PAIN OTR DISTRESS NOTED RETAKE OF B/P 150/60. WILL CONTINUE TO MONITOR PT B/P AND VITAL SIGNS
--- NOTE | 2019-03-25 03:00 | NUR ---
NEW IV SITE PROVIDED TO AntonG Prisca F/A.
--- NOTE | 2019-03-25 04:30 | NUR ---
DEEPAK HERNANDEZ AND IS RUNNING AT 10MLS/HR. NEW IV SITE 2G ON R F/A INTACT AND FLUSHED PATENT. WOUND CARE PROVIDED. PT DENIES PAIN BED LOW CALL MASON IN REACH AND ALL REQUESTED NEEDS ATTENDED.
--- NOTE | 2019-03-25 06:00 | NUR ---
PT GIVEN DUE AM MEDS FINGERSTICK IS 153, 2 UNITS OF HUMALOG PROVIDED FOR INSULIN COVERAGE.
[2019-03-25] MEDS: PIPERACILLIN/TAZOBACTAM 3.375 GM in DEXTROSE 5% 50 ML IV SCH ×3 (06:03→21:13)
[2019-03-25] MEDS: INSULIN LISPRO SLIDING SCALE 100 UNITS/ML VIAL SUBQ PRN ×4 (06:04→21:07)
[2019-03-25] MEDS: BLOOD GLUCOSE MONITORING 1 DEV DEV FS SCH ×4 (06:11→21:04)
[2019-03-25] MEDS: LEVOTHYROXINE 0.05 MG TAB PO SCH (06:11)
--- NOTE | 2019-03-25 07:20 | NUR ---
RECEIVED REPORT FROM FUR REPAIR INSPECTOR NURSE. PATIENT LYING DOWN IN BED SLEEPING, AROUSABLE BY VOICE. NO DISTRESS NOTED. DENIES ANY PAIN. AAXO4, CALM, COOPERATIVE, SKIN COLOR APPROPRIATE TO ETHNICITY, WARM TO TOUCH. HAS RIGHT FOOT ULCER, DRESSING IS DRY AND INTACT. ABDOMEN SOFT, NON-DISTENDED. IV SITE INTACT, PATENT, AND INFUSING IVF PER MD ORDERS. REVIEWED PLAN OF CARE WITH PATIENT. PATIENT VERBALIZED UNDERSTANDING. SAFETY MEASURES IN PLACE, CALL LIGHT WITHIN REACH. WILL CONTINUE TO MONITOR.
[2019-03-25 08:00] VITALS: BP 159/56
[2019-03-25] MEDS: INSULIN LANTUS 100 UNITS/ML 10 ML VIAL SUBQ SCH (09:42)
[2019-03-25] MEDS: LACTOBACILLUS RHAMNOSUS GG 1 EACH CAP PO SCH (09:44)
[2019-03-25] MEDS: FERROUS SULFATE 325 MG TABEC PO SCH ×2 (09:44→16:47)
[2019-03-25] MEDS: LOSARTAN 50 MG TAB PO SCH (09:44)
[2019-03-25] MEDS: RALOXIFENE 60 MG TAB PO SCH (09:44)
[2019-03-25] MEDS: ISOSORBIDE DINITRATE 10 MG TAB PO SCH (09:45)
[2019-03-25] MEDS: FUROSEMIDE 20 MG TAB PO SCH (09:45)
[2019-03-25] MEDS: NIACIN 500 MG TAB PO SCH (09:45)
[2019-03-25] MEDS: CLOPIDOGREL 75 MG TAB PO SCH (09:46)
[2019-03-25] MEDS: ASPIRIN 81 MG TAB.CHEW PO SCH (09:46)
[2019-03-25] MEDS: ATORVASTATIN 80 MG TAB PO SCH (09:46)
[2019-03-25] MEDS: NACL 0.9% 1,000 ML IV SCH ×2 (09:51→21:10)
[2019-03-25] MEDS: POLYVINYL ALCOHOL 1.4% OP 15 ML SOL OP SCH (09:54)
--- NOTE | 2019-03-25 10:00 | NUR ---
PATIENT LYING DOWN IN BED COMFORTABLY, CONDITION UNCHANGED. WILL CONTINUE TO MONITOR.
[2019-03-25 10:38] LABS: EOSINOPHILS # (AUTO) 0.1 K/uL (0-0.4); EOSINOPHILS % (AUTO) 2.7 % (0.0-4.0); HEMATOCRIT 31.3 % (36-48); HEMOGLOBIN 10.2 g/dL (12.0-16.0); LYMPHOCYTES # (AUTO) 0.9 K/uL (2.5-16.5); LYMPHOCYTES % (AUTO) 24.1 % (20.5-51.1); MEAN CORPUSCULAR HEMOGLOBIN 32 pg (27-31); MEAN CORPUSCULAR HGB CONC 33 g/dL (33-37); MONOCYTES # (AUTO) 0.6 K/uL (0.8-1.0); MONOCYTES % (AUTO) 15.4 % (1.7-9.3); NEUTROPHILS # (AUTO) 2.1 K/uL (1.8-7.7); NEUTROPHILS % (AUTO) 56.8 % (42.2-75.2); PLATELET COUNT (AUTO) 181 K/uL (140-450); WHITE BLOOD COUNT (AUTO) 3.7 K/uL (4.8-10.8)
[2019-03-25 10:52] LABS: ALBUMIN 2.8 g/dL (3.4-5.0); ANION GAP 11.1 (8-16); ASPARTATE AMINOTRANSFERASE 37 U/L (15-37); CARBON DIOXIDE 27.2 mmol/L (21-32); CHLORIDE 106 mmol/L (98-107); CREATININE 0.9 mg/dL (0.6-1.3); GLUCOSE 305 mg/dL (74-106); MAGNESIUM 1.6 mg/dL (1.8-2.4); PHOSPHORUS 2.7 mg/dL (2.5-4.9); POTASSIUM 4.3 mmol/L (3.5-5.1); SODIUM SERUM 140 mmol/L (136-145); TOTAL BILIRUBIN 0.3 mg/dL (0.0-1.0); UREA NITROGEN, BLOOD 9 mg/dL (7-18)
--- NOTE | 2019-03-25 10:53 | NUR ---
*S.T. Bedside swallow eval completed* Pt presents w/ adequate oropharyngeal swallow function w/o s/s aspiration across all textures. Pt is also able to self-feed w/o difficulty, and independently insert U/L dentures. Pt denied s/s aspiration. Recommend: 1) Continue regular texture vegetarian diet. Thin liquids okay. Straws okay. 2) DC to [facility] at this time as pt does not demonstrate clinical dysphagia. No further tx indicated at this time. Endorsed to IVETT [place]. Time [id number]
[2019-03-25] MEDS: DRY DRESSING TP SCH (12:40)
[2019-03-25] MEDS: GAUZE TP SCH (12:40)
--- NOTE | 2019-03-25 12:43 | NUR ---
PATIENT SITTING IN BED WITH LUNCH TRAY IN FRONT. NO DISTRESS NOTED. DENIES ANY PAIN. SCHEDULED MEDICATIONS DUE GIVEN. WILL CONTINUE TO MONITOR.
[2019-03-25] MEDS ORDERED: MAGNESIUM OXIDE 400 MG TAB PO SCH (13:00)
[2019-03-25 16:00] VITALS: BP 148/64
--- NOTE | 2019-03-25 16:49 | NUR ---
SCHEDULED MEDICATIONS DUE GIVEN. CONDITION UNCHANGED. WILL CONTINUE TO MONITOR.
--- NOTE | 2019-03-25 19:32 | NUR ---
GAVE REPORT TO PRORATION CLERK NURSE FOR CONTINUITY OF CARE. PATIENT IN STABLE CONDITION.
--- NOTE | 2019-03-25 19:33 | NUR ---
RECEIVED BEDSIDE REPORT FROM AM SHIFT RNHARDEEP. PT IN RESTROOM. ASSISTED BACK TO BED. PT IS AMBULATORY. NO SIGNS OF RESPIRATORY DISTRESS OR SOB NOTED. PT AOX4. IV ACCESS ON RIGHT FOREARM 22 GAUGE, PATENT, INTACT AND ASYMPTOMATIC. BED IN LOW POSITION. BOARD UPDATED. WILL CONTINUE TO MONITOR.
[2019-03-25] MEDS: MONTELUKAST SODIUM 10 MG TAB PO SCH (21:12)
--- NOTE | 2019-03-25 21:30 | NUR ---
BLOOD SUGAR 238 WITH 4 UNITS SUBQ HUMALOG PER PROTOCOL.
--- NOTE | 2019-03-25 23:00 | NUR ---
ROUNDS DONE. PT SLEEPING COMFORTABLY IN BED. NO DISTRESS NOTED.
[2019-03-26] VITALS: BP_SYST 159; BP_SYST 160; BP_DIAS 69; BP_DIAS 73
--- NOTE | 2019-03-26 | NUR ---
VITAL SIGNS TAKEN. PT IS SLEEPING COMFORTABLY. VISIBLE CHEST RISE AND FALL NOTED. WILL CONTINUE TO MONITOR.
--- NOTE | 2019-03-26 02:03 | NUR ---
ROUNDS MADE. PT SLEEPING IN BED. NO DISTRESS NOTED. WILL CONTINUE TO MONITOR.
--- NOTE | 2019-03-26 04:06 | NUR ---
ROUNDS MADE. PT SLEEPING COMFORTABLY. NO DISTRESS NOTED. VISIBLE CHEST RISE AND FALL NOTED. WILL CONTINUE TO MONITOR.
[2019-03-26] MEDS: PIPERACILLIN/TAZOBACTAM 3.375 GM in DEXTROSE 5% 50 ML IV SCH ×2 (05:32→12:39)
[2019-03-26] MEDS: BLOOD GLUCOSE MONITORING 1 DEV DEV FS SCH ×2 (05:57→11:30)
[2019-03-26] MEDS: LEVOTHYROXINE 0.05 MG TAB PO SCH (06:02)
--- NOTE | 2019-03-26 06:08 | NUR ---
PT HAD A BLOOD SUGAR OF 140 WITH NO INSULIN COVERAGE NEEDED. PT IS SLEEPING AND STABLE.
[2019-03-26 06:19] LABS: ANION GAP 10.6 (8-16); CHLORIDE 109 mmol/L (98-107); CREATININE 0.8 mg/dL (0.6-1.3); GLUCOSE 135 mg/dL (74-106); POTASSIUM 3.6 mmol/L (3.5-5.1); SODIUM SERUM 144 mmol/L (136-145); UREA NITROGEN, BLOOD 8 mg/dL (7-18)
[2019-03-26 06:23] LABS: BASOPHILS % (AUTO) 1.1 % (0.0-2.0); EOSINOPHILS # (AUTO) 0.1 K/uL (0-0.4); EOSINOPHILS % (AUTO) 2.8 % (0.0-4.0); HEMATOCRIT 29.7 % (36-48); HEMOGLOBIN 9.7 g/dL (12.0-16.0); LYMPHOCYTES # (AUTO) 1.3 K/uL (2.5-16.5); LYMPHOCYTES % (AUTO) 27.7 % (20.5-51.1); MEAN CORPUSCULAR HEMOGLOBIN 32 pg (27-31); MEAN CORPUSCULAR HGB CONC 33 g/dL (33-37); MEAN CORPUSCULAR VOLUME 98.2 fL (80-94); MONOCYTES # (AUTO) 0.7 K/uL (0.8-1.0); MONOCYTES % (AUTO) 15.5 % (1.7-9.3); NEUTROPHILS # (AUTO) 2.4 K/uL (1.8-7.7); NEUTROPHILS % (AUTO) 52.9 % (42.2-75.2); PLATELET COUNT (AUTO) 187 K/uL (140-450); RED BLOOD CELL COUNT(AUTO) 3.02 MIL/uL (4.20-5.40); RED CELL DISTRIBUTION WIDTH 13.9 % (11.6-13.7); WHITE BLOOD COUNT (AUTO) 4.6 K/uL (4.8-10.8)
[2019-03-26] MEDS ORDERED: LORazepam 2 MG/ML VIAL IM/IVP PRN (06:30)
[2019-03-26] MEDS ORDERED: MORPHINE SULFATE 2 MG/ML SYR IVP PRN (06:30)
[2019-03-26] MEDS ORDERED: HYDROcodone/APAP 5/325 MG 1 TAB TAB PO PRN (06:30)
[2019-03-26 06:38] LABS: MAGNESIUM 1.6 mg/dL (1.8-2.4); PHOSPHORUS 2.9 mg/dL (2.5-4.9)
--- NOTE | 2019-03-26 06:57 | NUR ---
PT IN STABLE CONDITION. WILL ENDORSE TO AM SHIFT NURSE FOR CONTINUITY OF CARE.
--- NOTE | 2019-03-26 07:23 | NUR ---
RECEIVED BEDSIDE HAND OFF REPORT FROM PM RN. PT AWAKE IN BED PT APPEARS STABLE AND IN NO APPARENT DISTRESS. ALL SAFETY MEASURES ARE IN PLACE WILL CONTINUE TO MONITOR
[2019-03-26 08:00] VITALS: BP 157/62
[2019-03-26] MEDS: LOSARTAN 50 MG TAB PO SCH (08:45)
[2019-03-26] MEDS: ATORVASTATIN 80 MG TAB PO SCH (08:45)
[2019-03-26] MEDS: NIACIN 500 MG TAB PO SCH (08:45)
[2019-03-26] MEDS: ISOSORBIDE DINITRATE 10 MG TAB PO SCH (08:46)
[2019-03-26] MEDS: LACTOBACILLUS RHAMNOSUS GG 1 EACH CAP PO SCH (08:46)
[2019-03-26] MEDS: CLOPIDOGREL 75 MG TAB PO SCH (08:46)
[2019-03-26] MEDS: ASPIRIN 81 MG TAB.CHEW PO SCH (08:46)
[2019-03-26] MEDS: RALOXIFENE 60 MG TAB PO SCH (08:47)
[2019-03-26] MEDS: POLYVINYL ALCOHOL 1.4% OP 15 ML SOL OP SCH (08:47)
[2019-03-26] MEDS: FERROUS SULFATE 325 MG TABEC PO SCH (08:47)
[2019-03-26] MEDS: INSULIN LANTUS 100 UNITS/ML 10 ML VIAL SUBQ SCH (08:51)
[2019-03-26] MEDS ORDERED: FUROSEMIDE 40 MG TAB PO SCH (09:00)
[2019-03-26] MEDS ORDERED: MAGNESIUM OXIDE 400 MG TAB PO SCH (09:30)
--- NOTE | 2019-03-26 09:34 | NUR ---
FREQUENT ROUNDING ON PT PT APPEARS STABLE AND IN NO APPARENT DISTRESS. ALL SAFETY MEASURES ARE IN PLACE WILL CONTINUE TO MONITOR
[2019-03-26] MEDS: NACL 0.9% 1,000 ML IV SCH (10:55)
[2019-03-26] MEDS: INSULIN LISPRO SLIDING SCALE 100 UNITS/ML VIAL SUBQ PRN (12:39)
[2019-03-26] MEDS ORDERED: CIPR500T4 PO (12:48)
[2019-03-26] MEDS ORDERED: AMOX-999 PO (12:48)
[2019-03-26] MEDS ORDERED: LACT10CA1 PO (12:48)
--- NOTE | 2019-03-26 12:55 | NUR ---
FINGERSTICK BLOOD GLUCOSE 218 ADMINISTERED 5 UNITS HUMALOG. PER PT SLIDING SCALE. PT AWAKE IN BED PT APPEARS STABLE AND IN NO APPARENT DISTRESS, ALL SAFETY MEASURES ARE IN PLACE WILL CONTINUE TO MONITOR.
[2019-03-26 13:00] VITALS: BP 157/60
--- NOTE | 2019-03-26 13:46 | NUR ---
FREQUENT ROUNDING ON PT PT APPEARS STABLE AND IN NO APPARENT DISTRESS. ALL SAFETY MEASURES ARE IN PLACE WILL CONTINUE TO MONITOR
--- NOTE | 2019-03-26 14:34 | NUR ---
REMOVED IV REMOVED ID BAND. REVIEWED DISCHARGE INSTRUCTIONS. INFORMED PT TO TAKE HER 2 ANTIBIOTICS FOR THE NEXT 35 DAYS. PT IS AWARE OF PODIATRY APPOINTMENT FOR 03/27 AND FOLLOW UP APPOINTMENT WITH PCP 04/02. PT SON AT BEDSIDE TO TRANSLATE. ANSWERED ALL QUESTIONS. TOOK DISCHARGE PHOTO OF WOUND. PT PLACED ORTHO BOOT ON. ALL SAFETY MEASURES ARE IN PLACE. PT LEFT THE UNIT WITH ALL PERSONAL BELONGINGS. PT LEFT UNIT VIA WHEELCHAIR. WITH SON.
== END 2019-03-26 14:35 | disposition home or self-care (01) | DRG 637 ==
LOC: MED 11:41 → MTU 16:21
PROVIDERS: ADMIT General Practice; ATTEND General Practice
PROC: 0HBMXZZ Excision of Right Foot Skin, External Approach (ICD-10-PCS; principal; 2019-03-19)
DX: E11.69 Type 2 diabetes mellitus with other specified complication (principal); J69.0 Pneumonitis due to inhalation of food and vomit; M86.9 Osteomyelitis, unspecified; E44.0 Moderate protein-calorie malnutrition; E11.621 Type 2 diabetes mellitus with foot ulcer; L97.519 Non-pressure chronic ulcer of other part of right foot with unspecified severity; M94.0 Chondrocostal junction syndrome [Tietze]; E78.00 Pure hypercholesterolemia, unspecified; I10 Essential (primary) hypertension; I25.10 Atherosclerotic heart disease of native coronary artery without angina pectoris; E03.9 Hypothyroidism, unspecified; L03.031 Cellulitis of right toe; J45.909 Unspecified asthma, uncomplicated; M81.0 Age-related osteoporosis without current pathological fracture; E78.5 Hyperlipidemia, unspecified; E11.40 Type 2 diabetes mellitus with diabetic neuropathy, unspecified; E87.5 Hyperkalemia; E83.42 Hypomagnesemia; Z68.31 Body mass index [BMI] 31.0-31.9, adult; E87.6 Hypokalemia; Z86.73 Personal history of transient ischemic attack (TIA), and cerebral infarction without residual deficits; Z95.5 Presence of coronary angioplasty implant and graft
CPT/HCPCS: 36415; 71045; 73660; 78300; 80048; 80053; 80202; 80305; 81001; 82140; 82150; 82607; 82728; 82746; 82948; 83036; 83540; 83605; 83690; 83735; 83880; 84100; 84443; 84484; 85025; 85045; 85610; 85651; 85730; 86140; 87040; 87070; 87075; 87081; 87186; 87205; 92610; 93005; 93925; 93970; 96365; 96368; 97116; 97530; 99285; J1644; J1815; J1940; J2543; J3370; J7030; J7060; Q0092